=== PATIENT | male | born 1945 | race Caucasian/White ===

== ENCOUNTER → 2017-04-29 | Outpatient (CLI) | payer OTHER | LOC: FIMAGING 09:38 | PROVIDERS: ATTEND Orthopaedic Surgery Orthopaedic Surgery of the Spine | DX: M43.17 Spondylolisthesis, lumbosacral region (principal); M51.36 Other intervertebral disc degeneration, lumbar region; M51.37 Other intervertebral disc degeneration, lumbosacral region ==

== ENCOUNTER 2017-10-09 12:42 | Emergency (ER) | payer OTHER ==
--- NOTE | 2017-10-09 13:29 | EDPHY ---
H & P Stated Complaint: cough s/p shoulder surg 09/29, fever Time Seen by Provider: 10/09/17 12:45 HPI/ROS: Chief Complaint: Cough HPI: 72-year-old male who is 10 days status post left shoulder rotator cuff repair. Patient states he has had a persistent cough since the surgery. He woke up after anesthesia and has had a occasionally productive cough. Patient states it is occasionally blood tinged but no ebenezer blood. He has also has some discomfort in his left chest when he coughs but is not have any pain with deep inspiration. Has noticed some subjective fevers and chills last couple days. The cough is persisting he is feeling increasingly run down. No lightheadedness or fainting. No central chest pain. No arm or leg pain or swelling. ROS: 10 point Review of Systems is negative except as noted in the HPI. PMH: Hyperlipidemia Social History: No smoking, no alcohol, no recreational drug use Family History: non-contributory Physical Exam: Gen: Awake, Alert, No Distress HEENT: Nose: no rhinorrhea Eyes: PERRLA, EOMI Mouth: Moist mucosa Neck: Supple, no JVD Chest: nontender, crackles at the left base Heart: S1, S2 normal, no murmur Abd: Soft, non-tender, no guarding Back: no CVA tenderness, no midline tenderness Ext: no edema, non-tender Skin: no rash Neuro: CN II-XII intact, Sensation grossly intact, Strength 5/5 in bilateral upper and lower extremities - Medical/Surgical History Other PMH: high cholestrol, pre-diabetic, carpal tunnel surg, ortho surg,. BPH with TURP - Social History Smoking Status: Former smoker Constitutional: Initial Vital Signs Temperature (C) 38.1 C 10/09/17 12:48 Heart Rate 72 10/09/17 12:48 Respiratory Rate 18 10/09/17 12:48 Blood Pressure 154/79 H 10/09/17 12:48 O2 Sat (%) 93 10/09/17 12:48 O2 Delivery Mode Room Air Allergies/Adverse Reactions: No Known Allergies Allergy (Unverified 10/09/17 12:48) Home Medications: Medication Instructions Recorded Pravastatin Sodium 11/20/15 Rivaroxaban [Xarelto 15mg (*)] 15 mg PO BID #42 tab 10/09/17 Medical Decision Making - Diagnostics EKG Interpretation: ECG time 2:48 p.m., sinus rhythm with a rate of [62], normal axis, normal intervals, no acute ST or T-wave changes. Impression: Normal ECG. No evidence of right heart strain. Imaging Results: Imaging Impressions Chest X-Ray 10/09/17 13:01 Impression: 1. Indistinct basilar opacities, left greater than right, which could be related to atelectasis, although infarct or pneumonia could have a similar appearance. 2. Additional findings as above. Findings discussed with Danish Matos MD 10/09/2017 at 13:25. Imaging: Discussed imaging studies w/ body recall instructor Radiologist ED Course/Re-evaluation: Chest x-ray results noted. Given the blood tinged sputum and had recent surgery even though he has no hypoxia, tachycardia or pleuritic pain I will obtain a CT scan to rule out pulmonary embolus. CT scan is positive for PE. Will check ECG and troponin make shows no evidence of heart strain. Patient has not had any syncope or any other symptoms suggestive of a wrist me for the last 10 days when he presumably he got the clot. If the troponin and the ECG do not show any evidence of significant heart strain patient will be started on rivaroxaban 15 mg twice a day for the next 21 days, followed by 20 mg 1 today. He will follow up with primary care physician in next 1-2 days for further evaluation. Patient's ECG is normal. Troponin is negative. No evidence of heart strain. He has gotten his initial dose of rivaroxaban. He will follow up with primary care physician, Dr. Rafi Martinez had a [facility] next 2-3 days. He will return for any concerns. I have explained him the risks associated with rivaroxaban. I have answered all his questions. - Data Points Laboratory Results: 10/09/17 10/09/17 14:41 13:41 POC Sodium 138 mEq/L mEq/L (135-145) POC Potassium 3.6 mEq/L mEq/L (3.3-5.0) POC Chloride 104.0 mEq/L mEq/L (97-110) POC Total CO2 24 mEq/L mEq/L (22-31) POC BUN 13 mg/dL mg/dL (7-23) POC Creatinine 0.9 mg/dL mg/dL (0.7-1.3) POC Glucose 133 mg/dL H mg/dL (70-100) POC Calcium 9.1 mg/dL mg/dL (8.5-10.4) POC Troponin I 0.01 ng/mL ng/mL (0.00-0.08) Point of Care Test Results: Chemistry 10/09/17 10/09/17 14:41 13:41 POC Sodium 138 mEq/L mEq/L (135-145) POC Potassium 3.6 mEq/L mEq/L (3.3-5.0) POC Chloride 104.0 mEq/L mEq/L (97-110) POC Total CO2 24 mEq/L mEq/L (22-31) POC BUN 13 mg/dL mg/dL (7-23) POC Creatinine 0.9 mg/dL mg/dL (0.7-1.3) POC Glucose 133 mg/dL H mg/dL (70-100) POC Calcium 9.1 mg/dL mg/dL (8.5-10.4) POC Troponin I 0.01 ng/mL ng/mL (0.00-0.08) Departure - Departure Disposition: Home, Routine, Self-Care Clinical Impression: Pulmonary embolus Condition: Good Instructions: Pulmonary Embolism (ED) Additional Instructions: You will take the Xarelto (rivaroxaban) 15 mg twice a day for the next 21 days. Your primary care physician will then change you to 20 mg once a day. Your at risk for bleeding while your on the rivaroxaban. Avoid any situations where you might sustained accidental injury. It is very important that you follow up with primary care physician in the next 2-3 days for further testing. Return to the emergency department for worsening shortness of breath, chest pain , lightheadedness, fainting, palpitations, uncontrolled bleeding, headache, or any other concerns. Referrals: Rafi Martinez [Other] - As per Instructions Prescriptions: Rivaroxaban [Xarelto 15mg (*)] 15 mg PO BID #42 tab
[2017-10-09] MEDS ORDERED: IOPAMIDOL (ISOVUE 370) 100 ML BTL IV ONE (13:58)
[2017-10-09] MEDS ORDERED: RIVAROXABAN 15 MG TAB PO ONE (14:50)
--- NOTE | 2017-10-09 14:50 | CPEKG ---
Heart Rate: 60 RR Interval: 1000 P-R Interval: 152 QRSD Interval: 98 QT Interval: 420 QTC Interval: 420 P [place]rot[place]: 31 QRS [place]: 18 T Wave [place]: 20 EKG Severity - NORMAL ECG - EKG Impression: SINUS RHYTHM Electronically Signed By: Danish Matos 09-Oct-2017 14:59:38
[2017-10-09 15:01] VITALS: BP 151/79
== END 2017-10-09 15:16 | disposition home or self-care (01) ==
LOC: CED 12:42
DX: I26.99 Other pulmonary embolism without acute cor pulmonale (principal); Z87.891 Personal history of nicotine dependence
CPT/HCPCS: 71046; 71275; 93005; 99285; Q9967; 80048-PO; 84484-PO

== ENCOUNTER → 2018-08-17 | Outpatient (CLI) | payer OTHER | LOC: FIMAGING 07:29 | PROVIDERS: ATTEND Internal Medicine Pulmonary Disease | DX: J31.0 Chronic rhinitis (principal); R05 Cough; R06.9 Unspecified abnormalities of breathing; R09.82 Postnasal drip ==